=== PATIENT | female | born 1955 | race Asian ===

== ENCOUNTER 2017-06-18 17:30 | Emergency (ER) | payer OTHER ==
[~2017-06-18] VITALS: Ht 162.6 cm; Wt 68.0 kg
[2017-06-18 17:33] VITALS: BP 159/95
[2017-06-18] MEDS ORDERED: ROBAXIN-750750 MG PO (18:01)
[2017-06-18] MEDS ORDERED: NAPROXEN500 M1 ORAL (18:01)
--- NOTE | 2017-06-18 18:01 | Emergency Room Report ---
History of Present Illness General Chief Complaint: Upper Extremity Injury Source: Patient Present Illness HPI 61 y/o female c/o left arm pain x 5 hours. 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 States pain is worse with palpation and with abduction / external rotation of the left arm. States she is not taking medication for sxs and that sxs improve with immobilization of the left bicep. No previous hx of shoulder or arm injuries. No other physical complaints. Denies trauma, CP, SOB, GREGORIO. Patient denies any numbness, tingling, pressure, paralysis, cyanosis, bruising, loss of sensation, or loss of range of motion. Allergies: Coded Allergies: SULFAMETHOXAZOLE (Verified Allergy, Unknown, 06/18/17) TRIMETHOPRIM (Verified Allergy, Unknown, 06/18/17) Patient History Past Medical History: see triage record Last Menstrual Period: menopause Immunizations: UTD Reviewed Nursing Documentation: PMH: Agreed, PSxH: Agreed Nursing Documentation-PMH Past Medical History: No Stated History Review of Systems All Other Systems: negative except mentioned in HPI Physical Exam Vital Signs Date Time Temp Pulse Resp B/P (MAP) Pulse Ox O2 Delivery O2 Flow Rate FiO2 06/18/17 17:33 97.7 70 18 159/95 100 Room Air Sp02 EP Interpretation: reviewed, normal General Appearance: no apparent distress, alert, GCS 15, non-toxic Head: normocephalic, atraumatic Eyes: bilateral eye normal inspection, bilateral eye PERRL ENT: hearing grossly normal, normal pharynx, no angioedema, normal voice Neck: full range of motion, no bony tend, supple/symm/no masses Respiratory: chest non-tender, normal breath sounds, no respiratory distress Cardiovascular #1: normal peripheral pulses, normal capillary refill Musculoskeletal: back normal, gait/station normal, normal range of motion, other - +pain with abduction, external and internal rotation. Neg Neers, Neg Sulcus, Neg biceptital groove, neg empty can, tender - left prxomal bicept / anterior shoulder. Neurologic: alert, oriented x3, responsive, motor strength/tone normal, sensory intact, speech normal Psychiatric: judgement/insight normal, memory normal, mood/affect normal, no suicidal/homicidal ideation Skin: normal color, no rash, warm/dry, well hydrated Medical Decision Making PA Attestation Dr. Ramirez is my supervising physician with whom patient management has been discussed with. Diagnostic Impression: Primary Impression: Biceps strain Qualified Codes: S46.212A - Strain of muscle, fascia and tendon of other parts of biceps, left arm, initial encounter ER Course Pt. presents to the ED c/o shoulder pain Ddx considered but are not limited to strain, sprain, dislocation, contusion, adhesive capsulitis, fracture, shoulder impingement Vital signs: are WNL, pt. is afebrile H&PE are most consistent with bicep strain ORDERS: none required at this time. ED INTERVENTIONS: Ibuprofen 600 and APAP 650. Patient declined toradol. Ice and Sling. DISCHARGE: At this time pt. is stable for d/c to home. Will provide printed patient care instructions, and any necessary prescriptions. Care plan and follow up instructions have been discussed with the patient prior to discharge. Last Vital Signs Date Time Temp Pulse Resp B/P (MAP) Pulse Ox O2 Delivery O2 Flow Rate FiO2 06/18/17 17:33 97.7 70 18 159/95 100 Room Air Disposition: HOME, SELF-CARE Condition: Stable Scripts Methocarbamol* (ROBAXIN-750*) 750 Mg Tablet 750 MG PO TID, #30 TAB 0 Refills Prov: TIANA [email or web address].Patrick 06/18/17 Naproxen* (NAPROXEN*) 500 Mg Tablet.dr 500 MG ORAL TWICE A DAY for 10 Days, #20 TAB Prov: [email or web address] 06/18/17 Patient Instructions: Biceps Tendon Tendinitis (Proximal) and Tenosynovitis With [facility] Additional Instructions: Take medication as directed. Patient advised to follow up with employee health on Tuesday Keep sling as directed as needed for comfort. Advised patient to use RICE therapy and nsaids as prescribed. Patient is to go to the ER immediately if they experience any pain that is not responding to medication, excess swelling, pressure feeling, loss of color, cyanosis, paralysis, or numbness. TIANA MALLOY Jun 18, 2017 18:01
[2017-06-18 18:17] VITALS: BP 159/95
== END 2017-06-18 18:26 | disposition home or self-care (01) ==
LOC: EMR 17:52
DX: S46.212A Strain of muscle, fascia and tendon of other parts of biceps, left arm, initial encounter (principal); X50.0XXA Overexertion from strenuous movement or load, initial encounter; Y93.9 Activity, unspecified; Y99.0 Civilian activity done for income or pay; Z88.2 Allergy status to sulfonamides
CPT/HCPCS: 99284